=== PATIENT | female | born 1960 | race Caucasian/White ===

== ENCOUNTER 2021-11-04 09:34 | Observation (INO) ==
[2021-11-04 10:26] LABS: Basophils % 0.5 %; Hematocrit 42.8 % (35.3-44.9); Immature Granulocytes % 0.2 % (0-4); Lymphocytes # 0.8 K/mcL (0.6-4.6); Lymphocytes % 18.6 %; Mean Corpuscular HGB Conc 32.7 g/dL (31.6-35.5); Mean Corpuscular Hemoglobin 32.4 pg (28.0-33.3); Mean Corpuscular Volume 99.1 fL (83.0-100.0); Mean Platelet Volume 10.3 fL (9.4-12.4); Monocytes # 0.5 K/mcL (0.0-1.3); Monocytes % 13.2 %; Neutrophils # 2.7 K/mcL (1.6-8.9); Platelet Count 169 K/mcL (140-400); Red Blood Count 4.32 M/mcL (3.82-4.97); Red Cell Distribution Width 11.9 % (11.5-14.5); Segmented Neutrophils % 66.5 %
[2021-11-04 10:33] LABS: Prothrombin Time 11.3 Seconds (9.4-12.1)
[2021-11-04 10:36] LABS: Activated Partial Thrombo Time 29.3 Seconds (26.0-36.0)
[2021-11-04] MEDS ORDERED: Iopamidol - 370 500 ML MLS IVP ONE (10:37)
[2021-11-04 10:48] LABS: Alanine Aminotransferase 22 Units/L (7-52); Albumin 4.8 g/dL (3.5-5.7); Albumin/Globulin Ratio 1.8 (1.1-2.2); Alkaline Phosphatase 62 Units/L (34-104); Aspartate Amino Transferase 21 Units/L (13-39); BUN/Creatinine Ratio 16 (6-26); Bilirubin,Direct 0.1 mg/dL (0.0-0.2); Bilirubin,Indirect 0.3 mg/dL (0.0-1.0); Bilirubin,Total 0.4 mg/dL (0.3-1.0); Blood Urea Nitrogen 12 mg/dL (8-23); Calcium 10.1 mg/dL (8.6-10.3); Carbon Dioxide 28 mEq/L (23-29); Chloride 105 mEq/L (98-107); Globulin 2.7 g/dL (2.4-3.5); Glucose 89 mg/dL (70-105); Lipase 31 Units/L (11-82); Osmolality,Calculated 287 (280-300); Sodium 139 mEq/L (136-145); Total Protein 7.5 g/dL (6.4-8.9); Troponin I < 0.03 ng/mL (< 0.04); eGFR For African Americans > 60 (> 60); eGFR For Non-African Americans > 60 (> 60)
[2021-11-04 12:15] LABS: Influenza A PCR Negative (Negative); Influenza B PCR Negative (Negative); Resp. Syncytial Virus PCR Negative (Negative)
[2021-11-04 12:25] LABS: SARS-CoV-2 by PCR (In House) Positive (Negative)
[2021-11-04] MEDS ORDERED: Aspirin 325 MG TABLET PO ONE (14:29)
[2021-11-04] MEDS ORDERED: Famotidine 20 MG/2 ML VIAL IVP ONE (14:29)
[2021-11-04] MEDS ORDERED: Naloxone 0.4 MG/ML INJ IVP PRN (15:15)
[2021-11-04] MEDS ORDERED: Mag Hydrox/Al Hydrox/Simeth 30 ML UDC PO PRN (15:15)
[2021-11-04] MEDS ORDERED: MOM Conc 10 ML UD.LIQ PO PRN (15:15)
[2021-11-04] MEDS ORDERED: Ondansetron ODT 4 MG TAB.RAPDIS SL PRN (15:15)
[2021-11-04] MEDS ORDERED: Perflutren Lipid Microsphere 1.3 ML in 0.9 % Sodium Chloride 8.7 ML IVP PRN (15:17)
[2021-11-04] MEDS ORDERED: Ketorolac 30 MG/ML VIAL IVP PRN (17:06)
[2021-11-05 03:13] LABS: Hemoglobin 13.2 g/dL (11.5-15.4); Mean Corpuscular Hemoglobin 32.6 pg (28.0-33.3); Mean Corpuscular Volume 98.8 fL (83.0-100.0); Mean Platelet Volume 11.5 fL (9.4-12.4); Platelet Count 129 K/mcL (140-400); Red Blood Count 4.05 M/mcL (3.82-4.97); White Blood Count 3.2 K/mcL (4.3-11.1)
[2021-11-05 03:34] LABS: BUN/Creatinine Ratio 15 (6-26); Blood Urea Nitrogen 11 mg/dL (8-23); Calcium 9.3 mg/dL (8.6-10.3); Carbon Dioxide 24 mEq/L (23-29); Chloride 105 mEq/L (98-107); Chol/HDL Ratio 2.7 (0-4.9); Cholesterol 179 mg/dL (< 200); Glucose 87 mg/dL (70-105); HDL Cholesterol 66 mg/dL (40-59); LDL Cholesterol,Calculated 100 mg/dL (< 100); Osmolality,Calculated 285 (280-300); Potassium 3.5 mEq/L (3.5-5.1); Sodium 138 mEq/L (136-145); Triglycerides 64 mg/dL (< 150); eGFR For African Americans > 60 (> 60); eGFR For Non-African Americans > 60 (> 60)
[2021-11-05] MEDS: Acetaminophen 325 MG TABLET PO PRN ×2 (08:09→14:18)
[2021-11-05] MEDS ORDERED: Aspirin 81 MG TAB.CHEW PO SCH (09:00)
[2021-11-05] MEDS ORDERED: Pantoprazole 40 MG VIAL IVP SCH (09:00)
[2021-11-05 10:56] VITALS: BP 121/69; PULSE 70; O2SAT 97
[2021-11-05 14:27] VITALS: TEMP 98
== END 2021-11-05 18:52 | disposition home or self-care (01) ==
LOC: EMEROOARM 09:34 → 3BNU 09:34 → SUATTDRO 15:43 → 3BNU 18:10
PROVIDERS: ADMIT Family Medicine; ATTEND Internal Medicine